=== PATIENT | male | born 1965 | race African-American/Black ===

== ENCOUNTER 2019-02-28 13:17 | Outpatient (CLI) | payer OTHER ==
--- NOTE | 2019-02-28 15:06 | XRay Report ---
CHEST 2 VIEWS INDICATION: HEAVY CIGARETTE SMOKER/WT LOSS/BRONCHITIS. COMPARISON: None. FINDINGS: Support devices: None. Heart: Within normal limits. Lungs/Pleura: No acute air space or interstitial disease. No significant pleural effusion. IMPRESSION: No acute findings. Signer Name: Jcarlos Lerma MD Signed: 02/28/2019 3:02 PM Workstation Name: [email or web address]
== END 2019-02-28 13:18 | disposition home or self-care (01) ==
LOC: XRAY 13:17
PROVIDERS: ATTEND Family Medicine
DX: J40 Bronchitis, not specified as acute or chronic (principal); R63.4 Abnormal weight loss; F17.210 Nicotine dependence, cigarettes, uncomplicated
CPT/HCPCS: 71046